=== PATIENT | male | born 1975 | race Caucasian/White ===

== ENCOUNTER 2016-06-07 08:05 | Emergency (ER) | payer MEDICAID ==
[~2016-06-07] VITALS: Ht 172.7 cm; Wt 66.7 kg
[~2016-06-07 08:05] MED LIST: LISI10TA5 PO
[2016-06-07 08:11] VITALS: BP 133/74; PULSE 84; RESP 20; TEMP 97.4; O2SAT 96
--- NOTE | 2016-06-07 08:14 | NUR ---
Patient to ER bed 8 to gown for evaluation. Side rails up. Report given to Ana GOLDBERG.
--- NOTE | 2016-06-07 08:20 | NUR ---
Patient in stable condition, visitor present. Alert and oriented x4. Patient states was at work in [place] on Wednesday around hay (has mild allergy to hay) and began coughing, getting wattery eyes, runny nose and sneezing. States went to clinic, doctor stated may have pneumonia but did not treat him. Also states vomited 3x yesterday. States that symptoms remain today + buring sensation in throat/chest that worsens with inspiration. No cough noted at this time. Wheezing throughout lung feild. Denies nausea/vomiting at this time. No other complaints/injuries per patient or noted.
--- NOTE | 2016-06-07 08:30 | NUR ---
Dr. Ariza at bedside.
[2016-06-07] MEDS ORDERED: LevALBUTEROL HCL 1.25 MG/0.5 ML *CONC.* VIAL.NEB (XOPENEX CONC.) INH ONE ×2 (08:45)
[2016-06-07] MEDS ORDERED: AZITHROMYCIN 250 MG TABLET PO ONE (08:45)
[2016-06-07] MEDS ORDERED: PREDNISONE 20 MG TABLET PO ONE (09:30)
--- NOTE | 2016-06-07 10:00 | NUR ---
RT administered all breathing treatments-all not yet scanned on eMAR
[2016-06-07 10:08] VITALS: BP 125/76; PULSE 80; RESP 18; TEMP 97.1; O2SAT 98
--- NOTE | 2016-06-07 10:08 | NUR ---
Patient given written and verbal discharge instructions and verbalizes understanding. ER MD discussed with patient the results and treatment provided.Patient in stable condition. ID arm band removed. Rx of Zpack, prednisone and albuterol given. Patient educated on pain management and to follow up with PMD in 3-5 days per MD order. Pain Scale 0/10. Opportunity for questions provided and answered.
== END 2016-06-07 10:08 | disposition home or self-care (01) ==
LOC: SED 08:05
DX: J21.9 Acute bronchiolitis, unspecified (principal); I10 Essential (primary) hypertension; K21.9 Gastro-esophageal reflux disease without esophagitis
CPT/HCPCS: 71020; 94640; 99284; J7512; Q0144

== ENCOUNTER 2016-11-26 15:11 | Emergency (ER) | payer MEDICAID ==
[~2016-11-26] VITALS: Ht 170.2 cm; Wt 74.8 kg
[2016-11-26 15:20] VITALS: BP_SYST 149
[2016-11-26] MEDS ORDERED: EPINEPHrine 1 MG/ML AMP SUBCUT ONE (15:45)
== END 2016-11-26 16:50 | disposition home or self-care (01) ==
LOC: SED 15:11
DX: T78.49XA Other allergy, initial encounter (principal); J30.1 Allergic rhinitis due to pollen; K21.9 Gastro-esophageal reflux disease without esophagitis; I10 Essential (primary) hypertension; Z79.899 Other long term (current) drug therapy; X58.XXXA Exposure to other specified factors, initial encounter
CPT/HCPCS: 96372; 99283; J0171

== ENCOUNTER 2017-10-31 09:53 | Emergency (ER) | payer MEDICAID ==
[~2017-10-31] VITALS: Ht 172.7 cm; Wt 72.6 kg
[2017-10-31 09:53] VITALS: BP_SYST 145
[2017-10-31] MEDS ORDERED: EPINEPHrine 1 MG/ML AMP IM ONE (10:15)
[2017-10-31 10:55] VITALS: BP_SYST 145
== END 2017-10-31 10:55 | disposition home or self-care (01) ==
LOC: SED 09:53
DX: T78.40XA Allergy, unspecified, initial encounter (principal); K21.9 Gastro-esophageal reflux disease without esophagitis; I10 Essential (primary) hypertension; X58.XXXA Exposure to other specified factors, initial encounter
CPT/HCPCS: 96372; 99283; J0171